=== PATIENT | female | born 1970 | race Caucasian/White ===

== ENCOUNTER → 2025-01-25 | Outpatient (CLI) | payer BC ==
--- NOTE | 2025-01-25 18:54 | CT ---
EXAMINATION TYPE: CT shoulder RT wo con DATE OF EXAM: 01/25/2025 6:28 PM COMPARISON: None CLINICAL INDICATION: Female, 54 years old with history of M75.81; PHH, posterior and lateral right sh oulder pain x 2 months TECHNIQUE: Axial images were obtained of the CT shoulder RT wo con, Additional coronal and sagittal r eformatted images and soft tissue and bone window were obtained for review. 3-D reconstruction was cr eated on a separate workstation. Contrast used: mL of , (None if empty) Oral contrast used: (None if empty) CT DLP: 278.70 mGycm, Automated exposure control for dose reduction was used. FINDINGS: Mild degeneration changes of the glenoid and humerus. Mild osteophyte formation and hypertr ophy changes in the acromioclavicular joint with subchondral cystic change. There is no evidence of f racture, subluxation, or dislocation. No significant soft tissue swelling or joint effusion is ident ified. No focal muscular atrophy or edema is identified. No radiopaque foreign body identified. IMPRESSION: 1. No evidence of fracture. 2. Moderate right AC joint and mild right glenohumeral joint osteoarthrosis. [facility], , 01/25/2025 6:52 PM
== END | disposition home or self-care (01) ==
LOC: RADCTMAIN 16:00
PROVIDERS: ATTEND Family Medicine
DX: M19.011 Primary osteoarthritis, right shoulder (principal); M75.81 Other shoulder lesions, right shoulder